=== PATIENT | male | born 1950 | race Caucasian/White ===

== ENCOUNTER 2017-09-16 08:43 | Day surgery (SDC) | payer BC ==
[~2017-09-16 08:43] MED LIST: Cidofovir(NF) 75 MG/ML 5 ML VIAL TOPICAL ONE; Famotidine IV* 10 MG/ML 2 ML (20 mg) IV ONE
[2017-09-16] MEDS ORDERED: Methylene Blue 0.5 %* 50 MG/10 ML AMP IV ONE (09:13)
[2017-09-16] MEDS ORDERED: Famotidine IV* 10 MG/ML 2 ML (20 mg) ONE (09:26)
[2017-09-16] MEDS ORDERED: KETAMINE HCL* 50 MG/ML 10 ML VIAL ONE (10:29)
[2017-09-16] MEDS ORDERED: Midazolam* 1 MG/ML 10 ML VIAL (10 MG) ONE (10:29)
[2017-09-16] MEDS ORDERED: Propofol* 10 MG/ML 20 ML BTL IV PUSH ONE (10:29)
[2017-09-16] MEDS ORDERED: Lidocaine 2% PF * 5 ML VIAL ONE (10:29)
[2017-09-16] MEDS ORDERED: Ondansetron INJ* 2 MG/ML VIAL ONE (10:29)
[2017-09-16] MEDS ORDERED: Mivacurium Chloride* 20 MG/10 ML VIAL IV ONE (10:29)
[2017-09-16] MEDS ORDERED: Dexamethasone IV* 4 MG/ML 1 ML (4 MG) ONE (10:29)
[2017-09-16] MEDS ORDERED: fentaNYL* 50 MCG/ML 2 ML VIAL (100 MCG VIAL) ONE ×3 (10:29→13:30)
[2017-09-16] MEDS ORDERED: Lidocaine 4% TOPICAL* 50 ML TOP.SOLN ONE (10:35)
[2017-09-16] MEDS ORDERED: EPINEPHRINE 1 MG/ML 1 ML VIAL ONE (10:35)
[2017-09-16] MEDS ORDERED: Oxymetazoline 0.05% NASAL SPR* 15 ML BTL ONE (10:35)
[2017-09-16] MEDS ORDERED: Phenylephrine IV* 40 MCG/ML 10 ML SYRINGE ONE ×2 (11:08→11:54)
[2017-09-16] MEDS ORDERED: Levalbuterol 0.63MG/3ML NEB* UNIT OF USE INH PRN (11:42)
[2017-09-16] MEDS ORDERED: HYDROmorphone INJ* 1 MG/ML CARPUJECT SYRINGE IV PRN (11:42)
[2017-09-16] MEDS ORDERED: Ondansetron INJ* 2 MG/ML VIAL IV PRN (11:42)
[2017-09-16] MEDS: fentaNYL* 50 MCG/ML 2 ML VIAL (100 MCG VIAL) IV PRN ×2 (13:31→13:56)
[2017-09-16] MEDS ORDERED: Ibuprofen TAB* 400 MG ONE (14:28)
[2017-09-16 14:32] VITALS: BP 141/80
--- NOTE | 2017-09-17 04:10 | OP ---
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 OPERATIVE PROCEDURE: Microlaryngoscopy with KTP laser ablation of laryngeal papilloma under general endotracheal anesthesia with a laryngeal laser safe tube. COMPLICATIONS: None. DISPOSITION: Good. SPECIMEN: Laryngeal papilloma. INDICATIONS: The patient has a long history of laryngeal papillomatosis. He has had over 50 surgeries elsewhere for this. He has papilloma covering his supraglottis bilaterally over his vocal cords primarily though in the anterior two-thirds aspect of his larynx. DESCRIPTION OF PROCEDURE: He was taken to the operating room and placed in the supine position on the operating room table. General anesthesia was induced and he was orotracheally intubated with a #6 laser safe endotracheal tube. He was turned and draped for the surgery. Oxygen was turned down low for the procedure and his face was wrapped with wet towels. The laryngoscope was inserted and I systematically used the KTP laser at a setting between 6 and 10 to ablate the papilloma that was spreading over his supraglottis down the petiole of the epiglottis over his false vocal cords into the ventricle and then down over his true vocal cords. Once this was all done, I used the cidofovir, injected it into the areas of surgical resection. I used 2 mL of 75 mg per mL cidofovir. The laryngoscope I used was the smaller of the JAKO-II laryngoscopes. The patient tolerated the procedure well, no complications, extubated uneventfully, and transferred to the recover room in stable condition. [id number]/[facility] #: [id number] [facility]
== END 2017-09-16 14:51 | disposition home or self-care (01) ==
LOC: OR 08:43
PROVIDERS: ATTEND Otolaryngology
DX: D10.5 Benign neoplasm of other parts of oropharynx (principal); G47.33 Obstructive sleep apnea (adult) (pediatric); F41.8 Other specified anxiety disorders; Z85.46 Personal history of malignant neoplasm of prostate
CPT/HCPCS: 88305; A9270-GY; J0740; J1100; J2250; J2405; J2704; J3010

== ENCOUNTER 2018-09-08 07:57 | Day surgery (SDC) | payer BC ==
[~2018-09-08 07:57] MED LIST changes: +Buffered Lidocaine 0.9% SYRIN* 5 ML/SYR SYRINGE INTRADERM ONE; -Cidofovir(NF) 75 MG/ML 5 ML VIAL TOPICAL ONE; +Dexamethasone TAB* 4 MG PO ONE; +DiMENhydriNATE IV* 50 MG/ML VIAL IV PUSH PRN; +Levalbuterol 0.63MG/3ML NEB* UNIT OF USE INH PRN; +Morphine VIAL* 4 MG/ML VIAL (1 ml vial) IV PRN; +Naloxone* 0.4 MG/ML 1 ML VIAL IV PRN; +Ondansetron TAB* 4 MG PO ONE; +PROCHLORPERAZINE INJ 5 MG/ML 2 ML VIAL IV PRN; +[UNRECOGNIZED DRUG - OTHER] IVPB ONE; +fentaNYL* 50 MCG/ML 2 ML VIAL (100 MCG VIAL) IV PRN
[2018-09-08] MEDS ORDERED: Famotidine IV* 10 MG/ML 2 ML (20 mg) ONE (08:47)
[2018-09-08] MEDS ORDERED: Ondansetron ODT TAB* 4 MG ONE (08:48)
[2018-09-08] MEDS ORDERED: Dexamethasone TAB* 4 MG ONE (08:48)
[2018-09-08] MEDS ORDERED: Midazolam* 1 MG/ML 2 ML VIAL (2 MG) ONE (09:38)
[2018-09-08] MEDS ORDERED: fentaNYL* 50 MCG/ML 2 ML VIAL (100 MCG VIAL) ONE (09:38)
[2018-09-08] MEDS ORDERED: KETAMINE HCL* 50 MG/ML 10 ML VIAL ONE (09:38)
[2018-09-08] MEDS ORDERED: Atracurium* 10 MG/ML 10 ML VIAL ONE (09:38)
[2018-09-08] MEDS ORDERED: Neostigmine Methylsulfate* 1 MG/ML 10 ML VIAL (1 mg/ml) ONE (09:50)
[2018-09-08] MEDS ORDERED: Glycopyrrolate IV* 0.2 MG/ML 1 ML VIAL ONE ×2 (09:50→11:06)
[2018-09-08] MEDS ORDERED: EPINEPHRINE 1 MG/ML 1 ML VIAL ONE (10:23)
[2018-09-08] MEDS ORDERED: Lidocaine 4% TOPICAL* 50 ML TOP.SOLN ONE (10:23)
[2018-09-08] MEDS ORDERED: Oxymetazoline 0.05% NASAL SPR* 15 ML BTL ONE (10:23)
[2018-09-08] MEDS ORDERED: Methylene Blue 0.5 %* 50 MG/10 ML AMP IV ONE (10:28)
[2018-09-08] MEDS ORDERED: Propofol* 10 MG/ML 20 ML BTL ONE (11:06)
[2018-09-08 12:54] VITALS: BP 137/69
--- NOTE | 2018-09-09 00:20 | OP ---
DATE OF OPERATION: 09/08/18 - [facility] DATE OF : 48 SURGEON: Ugo Hernandez MD ANESTHESIA: General endotracheal anesthesia. PRE-OP DIAGNOSIS: laryngeal respiratory papillomatosis. POST-OP DIAGNOSIS: re laryngeal respiratory papillomatosis. OPERATIVE PROCEDURE: Microlaryngoscopy with biopsy and KTP laser ablation of laryngeal papillomatosis under general endotracheal anesthesia with a laser- safe endotracheal tube. COMPLICATIONS: None. DISPOSITION: Good. SPECIMEN: None. BLOOD LOSS: None. DESCRIPTION OF PROCEDURE: The patient was taken to the operating room and placed in the supine position on the operating table, maintained with general anesthesia and he was orotracheally intubated with a laser-safe tube, turned and draped for the surgery. During the surgery, he was wrapped with wet drapes and the oxygen was turned down because of the laser safety. A tooth guard was placed in his upper teeth and laryngoscope was inserted and suspended from the suspension system. He has diffuse papillomatosis of his supraglottis, glottis extending into the subglottic. By his count, this is about his 50th operation. KTP laser 8 power setting continuous was used to ablate the polyps changing position of the laryngoscope as needed. Then in the different surgical areas, I injected cidofovir intralesionally. The patient tolerated this well, no complications and transferred to the recovery room in stable condition. [id number]/[facility] #: [id number] [facility]
== END 2018-09-08 12:56 | disposition home or self-care (01) ==
LOC: OR 07:57
PROVIDERS: ATTEND Otolaryngology
DX: D14.1 Benign neoplasm of larynx (principal); E78.5 Hyperlipidemia, unspecified; F32.9 Major depressive disorder, single episode, unspecified
CPT/HCPCS: A9270-GY; J0740; J2250; J2704; J2710; J3010; J8540

== ENCOUNTER 2019-03-06 07:29 | Day surgery (SDC) | payer BC ==
[~2019-03-06 07:29] MED LIST changes: +Acetaminophen TAB* 325 MG PO PRN; -Buffered Lidocaine 0.9% SYRIN* 5 ML/SYR SYRINGE INTRADERM ONE; +Buffered Lidocaine 1% SYRIN* 1 ML/SYRINGE INTRADERM ONE; -Dexamethasone TAB* 4 MG PO ONE; -DiMENhydriNATE IV* 50 MG/ML VIAL IV PUSH PRN; -Famotidine IV* 10 MG/ML 2 ML (20 mg) IV ONE; -Levalbuterol 0.63MG/3ML NEB* UNIT OF USE INH PRN; -Morphine VIAL* 4 MG/ML VIAL (1 ml vial) IV PRN; -Naloxone* 0.4 MG/ML 1 ML VIAL IV PRN; -Ondansetron TAB* 4 MG PO ONE; -PROCHLORPERAZINE INJ 5 MG/ML 2 ML VIAL IV PRN; -[UNRECOGNIZED DRUG - OTHER] IVPB ONE; -fentaNYL* 50 MCG/ML 2 ML VIAL (100 MCG VIAL) IV PRN
[2019-03-06] MEDS ORDERED: fentaNYL* 50 MCG/ML 2 ML VIAL (100 MCG VIAL) ONE (07:53)
[2019-03-06] MEDS ORDERED: Midazolam* 1 MG/ML 5 ML VIAL (5 MG) ONE (07:53)
[2019-03-06] MEDS ORDERED: Lidocain 1% EPI 1:100,000 * 30 ML MDV ONE (08:51)
[2019-03-06] MEDS ORDERED: Bacitracin OPHTH.OINT* 3.5 GM ONE (08:51)
[2019-03-06] MEDS ORDERED: BSS OPTH.SOL* BTL ONE (08:51)
[2019-03-06] MEDS ORDERED: Tetracaine 0.5% OPTH.SOL 4 ML* 1 DROP BTL ONE (08:52)
[2019-03-06] MEDS ORDERED: Povidone Iodine 5% OPTH* 30 ML BTL ONE (08:52)
[2019-03-06] MEDS ORDERED: Propofol* 10 MG/ML 20 ML BTL ONE (09:22)
[2019-03-06] MEDS ORDERED: Midazolam* 1 MG/ML 2 ML VIAL (2 MG) ONE (09:33)
[2019-03-06 10:47] VITALS: BP 115/78
--- NOTE | 2019-03-06 11:46 | OP ---
DATE OF OPERATION: 03/06/19 - [facility] DATE OF : 48 SURGEON: Red Jensen MD. MARKETING TECHNOLOGY SPECIALIST: None. PRE-OP DIAGNOSIS: Bilateral lower lid blepharochalasis. POST-OP DIAGNOSIS: Bilateral lower lid blepharochalasis. OPERATIVE PROCEDURE: Bilateral lower lid blepharoplasty. BLOOD LOSS: Less than 5 cc. COMPLICATIONS: None. DESCRIPTION OF PROCEDURE: The patient was seen preoperatively in the holding area, where a subciliary incision was marked in each eye. He was subsequently brought to the operating suite, where he was given intravenous sedation. A subciliary injection of lidocaine 1% with epinephrine was performed as well as a block over the infraorbital foramen on both sides. A drop of tetracaine was placed in each eye. The patient was prepped and draped in the usual sterile fashion for ophthalmic surgery and attention was directed to the right eye. A # 15 Dinos Rule David blade was used to incise the subciliary incision. The skin was dissected both bluntly and sharply from the underlying orbicularis for approximately 1.5 cm. The orbicularis muscle was incised in a horizontal fashion approximately 5 mm inferior to the tarsal plate. Blunt dissection revealed a vascular plane superficial to the septum. A Kristine scissors was used to horizontally incise over the septum and expose sequentially the medial and lateral fat pads. Gentle pressure on the globe produced significant herniation of fat. This was in turn clamped, cut, and cauterized through all of these fat pads. Gentle cauterization of the orbicularis was performed as necessary. Overriding the orbicularis temporally was excised and cauterized. The patient was asked to look up and open his mouth and the skin of the lower lid was draped over the wound. A bart was made indicating redundant skin. A strip of skin was excised with Kristine scissor. Once hemostasis was confirmed , the skin was then closed with a running 6-0 nylon suture. Attention was then directed to the contralateral eye, where the same procedure was performed. At the end of the case, the tissue that was removed from each eye appeared symmetric. The eyelids appeared symmetric. The patient did not have any significant traction on the lower lids and had no active bleeding. Topical bacitracin was placed on the wound. The patient was brought to the recovery room, where he was placed in the head upright position and ice was placed on his eye. Postoperative instructions and followup appointment were given. [id number]/[facility] #: [id number] [place]
== END 2019-03-06 11:05 | disposition home or self-care (01) ==
LOC: OREAST 07:29
PROVIDERS: ATTEND Ophthalmology
DX: H02.32 Blepharochalasis right lower eyelid (principal); H02.35 Blepharochalasis left lower eyelid; J45.909 Unspecified asthma, uncomplicated; E78.5 Hyperlipidemia, unspecified; Z85.46 Personal history of malignant neoplasm of prostate; G47.33 Obstructive sleep apnea (adult) (pediatric); F32.89 Other specified depressive episodes
CPT/HCPCS: A9270-GY; J2250; J2704; J3010

== ENCOUNTER 2020-12-31 06:11 | Inpatient (IN) ==
[~2020-12-31 06:11] MED LIST changes: -Acetaminophen TAB* 325 MG PO PRN; +Buffered Lidocaine 1% SYRIN 1 ml INTRADERM ONE; -Buffered Lidocaine 1% SYRIN* 1 ML/SYRINGE INTRADERM ONE; +Lactated Ringers 1000 ml BAG 1,000 ML IV SCH
[2020-12-31] MEDS ORDERED: ceFAZolin 2 GM PREMIX 2 GM/50 ML BAG ONE (06:34)
[2020-12-31] MEDS ORDERED: Lidocaine 1% w EPI 1:200,000 SDV 30 ML VIAL ONE (06:48)
[2020-12-31] MEDS ORDERED: Gelfoam Sponge SIZE 100 SPONGE ONE (06:49)
[2020-12-31] MEDS ORDERED: Bupivacaine 0.25% SDV 30 ML ONE (06:49)
[2020-12-31] MEDS ORDERED: Bacitracin OINTMENT TUBE ONE (06:49)
[2020-12-31] MEDS ORDERED: Bacitracin INJECTION 50,000 UNITS ONE ×2 (06:49→12:53)
[2020-12-31] MEDS ORDERED: Thrombin 5,000 UNITS 1 APPLIC KIT - topical use - TOPICAL ONE (06:49)
[2020-12-31] MEDS ORDERED: fentaNYL 250 mcg/5 ml 50 MCG/ML 5 ml VIAL (250 MCG) ONE (07:02)
[2020-12-31] MEDS ORDERED: Propofol 10 MG/ML 20 ML BTL ONE ×2 (07:03→10:00)
[2020-12-31] MEDS ORDERED: Succinylcholine 200 mg VIAL 20 mg/ml 10 ml VIAL (200 mg) ONE (07:03)
[2020-12-31] MEDS ORDERED: Lidocaine 2% PF 5 ML VIAL ONE ×2 (07:03→07:45)
[2020-12-31] MEDS ORDERED: Artificial Tear OPHTH.OINT 3.5 GM ONE (07:05)
[2020-12-31] MEDS ORDERED: Rocuronium 50 mg VIAL 10 mg/ml 5 ml VIAL (50 mg) ONE (07:33)
[2020-12-31] MEDS ORDERED: Remifentanil 2 MG VIAL ONE (07:34)
[2020-12-31] MEDS ORDERED: levETIRAcetam IV 500 MG/5 ML VIAL ONE (08:02)
[2020-12-31] MEDS ORDERED: Mannitol 25% (12.5 GM) 50 ML 12.5 GM/50 ML VIAL ONE (08:02)
[2020-12-31] MEDS ORDERED: EPHEDrine (Pressors) 50 MG/ML VIAL ONE ×2 (08:31→12:24)
[2020-12-31] MEDS ORDERED: Dexamethasone IV 4 MG/ML VIAL 1 ml VIAL ONE (08:54)
[2020-12-31] MEDS ORDERED: HYDROmorphone 1 MG/1 ML SYRINGE ONE ×2 (09:39→14:42)
[2020-12-31] MEDS ORDERED: Phenylephrine 40 mcg/mL 10mL (400mcg) SYRINGE ONE (09:44)
[2020-12-31] MEDS ORDERED: Propofol 1,500 MG/150 ML BTL ONE (10:06)
[2020-12-31] MEDS ORDERED: diPHENhydraMINE IV 50 MG/ML 1 ml VIAL (BENADRYL) IV PRN (10:47)
[2020-12-31] MEDS ORDERED: HYDROmorphone 1 MG/1 ML SYRINGE IV PRN (10:47)
[2020-12-31] MEDS ORDERED: Naloxone 0.4 mg VIAL 0.4 mg/ml 1 ml VIAL IV PRN (10:47)
[2020-12-31] MEDS ORDERED: Prochlorperazine 5 mg/ml 2 ml VIAL (10 mg) IV PRN (10:47)
[2020-12-31] MEDS ORDERED: Ondansetron 4 mg VIAL 2 MG/ML 2 ml VIAL ONE (11:54)
[2020-12-31] MEDS: NS 0.9% 1000 ml BAG 1,000 ML IV SCH (15:15)
[2020-12-31 17:55] LABS: ABS Lymphocytes 0.4 10^3/ul (1.0-4.8); ABS Monocytes 0.2 10^3/ul (0-0.8); ABS Neutrophils 10.6 10^3/ul (1.5-7.7); Hematocrit 36 % (42-52); Hemoglobin 12.2 g/dL (14.0-18.0); Lymphocyte % 3.2 %; Mean Corpuscular HGB Conc 34 g/dL (31-36); Mean Corpuscular Hemoglobin 32 pg (27-31); Mean Corpuscular Volume 93 fL (80-94); Mean Platelet Volume 6.2 fL (7.4-10.4); Platelet Count 265 10^3/uL (150-450); Red Blood Count 3.85 10^6 /uL (4.18-5.48); Red Cell Distribution Width 14 % (10-15); White Blood Count 11.2 10^3/uL (3.5-10.8)
[2020-12-31] MEDS: hydrALAZINE 20 mg/ml 1 ML Vial IV IV SLOW PU PRN (17:56)
[2020-12-31] MEDS: ceFAZolin 2 GM PREMIX 2 GM/50 ML BAG IVPB SCH (18:02)
[2020-12-31] MEDS: Dexamethasone IV 4 MG/ML VIAL 1 ml VIAL IV SLOW PU SCH (18:08)
[2020-12-31 18:09] LABS: Activated Partial Thrombo Time 28.2 seconds (26.0-38.0); Albumin 3.9 g/dL (3.2-5.2); Albumin/Globulin Ratio 1.4 (1-3); BUN/Creatinine Ratio 12.7 (8-20); EGFR African American 87.1 (>60); Globulin 2.8 g/dL (2-4); INR 1.06 (0.82-1.09); Magnesium 1.8 mg/dL (1.9-2.7); Phosphorus 1.7 mg/dL (2.5-5.0); Total Bilirubin 0.3 mg/dL (0.2-1.0); Total Protein 6.7 g/dL (6.4-8.9)
[2020-12-31] MEDS: Morphine 2 MG/ML SYRINGE IV PRN (18:30)
[2020-12-31] MEDS ORDERED: niCARdipine 0.1MG/ML IVPREMIX 20 MG/200 ML BAG IV SCH (19:00)
[2020-12-31] MEDS: Ondansetron 4 mg VIAL 2 MG/ML 2 ml VIAL IV PRN (19:43)
[2020-12-31] MEDS: levETIRAcetam 500 MG IVPREMIX 500 MG/100 ML BAG IV SCH (20:22)
[2020-12-31] MEDS: Magnesium Hydroxide LIQ 30 ML UDC PO SCH (20:23)
[2020-12-31] MEDS ORDERED: Magnesium Hydroxide LIQ 30 ML UDC PO SCH (21:00)
[2020-12-31] MEDS: Acetaminophen IV 1000 MG/100ML IVPB SCH (21:51)
[2021-01-01] MEDS: Dexamethasone IV 4 MG/ML VIAL 1 ml VIAL IV SLOW PU SCH ×4 (00:12→17:39)
[2021-01-01] MEDS: ceFAZolin 2 GM PREMIX 2 GM/50 ML BAG IVPB SCH ×3 (00:13→17:18)
[2021-01-01] MEDS: NS 0.9% 1000 ml BAG 1,000 ML IV SCH ×2 (02:22→14:48)
[2021-01-01 04:37] LABS: ABS Lymphocytes 0.4 10^3/ul (1.0-4.8); ABS Monocytes 0.5 10^3/ul (0-0.8); ABS Neutrophils 12.6 10^3/ul (1.5-7.7); Hematocrit 34 % (42-52); Hemoglobin 11.5 g/dL (14.0-18.0); Lymphocyte % 2.9 %; Mean Corpuscular HGB Conc 34 g/dL (31-36); Mean Corpuscular Hemoglobin 32 pg (27-31); Mean Corpuscular Volume 94 fL (80-94); Platelet Count 265 10^3/uL (150-450); Red Blood Count 3.64 10^6 /uL (4.18-5.48); Red Cell Distribution Width 14 % (10-15); White Blood Count 13.5 10^3/uL (3.5-10.8)
[2021-01-01 04:55] LABS: Calcium 8.4 mg/dL (8.6-10.3); Magnesium 1.6 mg/dL (1.9-2.7); Phosphorus 2.5 mg/dL (2.5-5.0); Potassium 3.9 mmol/L (3.5-5.0)
[2021-01-01] MEDS: Acetaminophen IV 1000 MG/100ML IVPB SCH ×2 (05:29→14:47)
[2021-01-01] MEDS ORDERED: Magnesium Sulfate 2 gm BAG 2 GM/50 ML BAG IVPB ONE (06:54)
[2021-01-01] MEDS ORDERED: niCARdipine 0.1MG/ML IVPREMIX 20 MG/200 ML BAG IV SCH (08:26)
[2021-01-01] MEDS ORDERED: Calcium Gluconate 2 GM in NS 0.9% 100 ml BAG 100 ML IV ONE (08:30)
[2021-01-01] MEDS: Multivitamins/Minerals TAB PO SCH (09:01)
[2021-01-01] MEDS: Magnesium Hydroxide LIQ 30 ML UDC PO SCH ×2 (09:01→20:04)
[2021-01-01] MEDS: Polyethylene Glycol 3350 17 GM PACKET PO SCH (09:01)
[2021-01-01] MEDS: Enoxaparin 40 MG/0.4 ML SYR SUBCUT SCH (09:01)
[2021-01-01] MEDS: Morphine 2 MG/ML SYRINGE IV PRN ×3 (09:02→20:04)
[2021-01-01] MEDS: levETIRAcetam 500 MG IVPREMIX 500 MG/100 ML BAG IV SCH (09:29)
[2021-01-01 09:33] LABS: EGFR African American 92.3 (>60); EGFR Non-African American 76.3 (>60)
[2021-01-01] MEDS ORDERED: Magnesium Sulf 4 GM/100 ML IV 4,000 MG/100 ML BAG IVPB ONE (10:00)
[2021-01-01] MEDS ORDERED: Perflutren Lipid Microsphere 3 ML VIAL ONE (10:04)
[2021-01-01] MEDS ORDERED: Gadoteridol (CONTRAST) 279.3 MG/ML 10 ML IV ONE (16:10)
[2021-01-02] MEDS: Morphine 2 MG/ML SYRINGE IV PRN ×3 (00:34→21:45)
[2021-01-02] MEDS: Dexamethasone IV 4 MG/ML VIAL 1 ml VIAL IV SLOW PU SCH (00:34)
[2021-01-02] MEDS: ceFAZolin 2 GM PREMIX 2 GM/50 ML BAG IVPB SCH ×3 (00:36→17:25)
[2021-01-02 05:38] LABS: ABS Lymphocytes 0.5 10^3/ul (1.0-4.8); ABS Monocytes 0.9 10^3/ul (0-0.8); ABS Neutrophils 15.4 10^3/ul (1.5-7.7); Hematocrit 32 % (42-52); Hemoglobin 11.1 g/dL (14.0-18.0); Lymphocyte % 3.2 %; Mean Corpuscular HGB Conc 34 g/dL (31-36); Mean Corpuscular Hemoglobin 32 pg (27-31); Mean Corpuscular Volume 93 fL (80-94); Platelet Count 277 10^3/uL (150-450); Red Blood Count 3.48 10^6 /uL (4.18-5.48); Red Cell Distribution Width 14 % (10-15); White Blood Count 16.9 10^3/uL (3.5-10.8)
[2021-01-02 05:55] LABS: Calcium 8.4 mg/dL (8.6-10.3); EGFR African American 89.1 (>60); EGFR Non-African American 73.7 (>60); Magnesium 2.5 mg/dL (1.9-2.7); Potassium 4.2 mmol/L (3.5-5.0)
[2021-01-02] MEDS ORDERED: Dexamethasone IV 4 MG/ML VIAL 1 ml VIAL IV SLOW PU SCH ×2 (06:00→14:00)
[2021-01-02] MEDS: Magnesium Hydroxide LIQ 30 ML UDC PO SCH ×2 (08:18→20:57)
[2021-01-02] MEDS: Polyethylene Glycol 3350 17 GM PACKET PO SCH (08:19)
[2021-01-02] MEDS: Enoxaparin 40 MG/0.4 ML SYR SUBCUT SCH (08:19)
[2021-01-02] MEDS: Multivitamins/Minerals TAB PO SCH (08:19)
[2021-01-02] MEDS ORDERED: Calcium Gluconate 2 GM in NS 0.9% 100 ml BAG 100 ML IV ONE (08:30)
[2021-01-02] MEDS ORDERED: Sodium Phosphate IV 30 MMOLE in NS 0.9% 250 ml 250 ML IVPB ONE (08:30)
[2021-01-02 09:02] LABS: Urine Appearance Clear; Urine Bilirubin Negative (Negative); Urine Blood 1+ (Negative); Urine Color Straw; Urine Glucose Negative (Negative); Urine Ketones Negative (Negative); Urine Nitrite Negative (Negative); Urine Protein Negative (Negative); Urine Specific Gravity 1.012 (1.002-1.030); Urine Urobilinogen Negative (Negative)
[2021-01-02 09:04] LABS: Urine Bacteria Absent (Absent); Urine Red Blood Cell 2+(6-10/hpf) (Absent); Urine White Blood Cell Trace(0-5/hpf) (Absent)
[2021-01-02 13:55] LABS: Urine Potassium Concentration 18.6 mmol/L
[2021-01-02 18:11] LABS: Urine Appearance Clear; Urine Bilirubin Negative (Negative); Urine Blood 1+ (Negative); Urine Color Yellow; Urine Glucose Negative (Negative); Urine Ketones Negative (Negative); Urine Nitrite Negative (Negative); Urine Protein Negative (Negative); Urine Specific Gravity 1.012 (1.002-1.030); Urine Urobilinogen Negative (Negative)
[2021-01-02 18:14] LABS: Urine Bacteria Absent (Absent); Urine Red Blood Cell Trace(0-2/hpf) (Absent); Urine White Blood Cell Absent (Absent)
[2021-01-02] MEDS: Sodium Phosphate ADULT ENEMA 133 ML BTL PR SCH (19:30)
[2021-01-02] MEDS: Senna TAB 8.6 mg TAB PO SCH (20:57)
[2021-01-03] MEDS: Morphine 2 MG/ML SYRINGE IV PRN ×3 (02:19→23:12)
[2021-01-03] MEDS: ceFAZolin 2 GM PREMIX 2 GM/50 ML BAG IVPB SCH ×3 (02:31→16:48)
[2021-01-03 05:56] LABS: ABS Lymphocytes 2.1 10^3/ul (1.0-4.8); ABS Monocytes 1.4 10^3/ul (0-0.8); ABS Neutrophils 11.8 10^3/ul (1.5-7.7); Eosinophil % 0.2 %; Hematocrit 32 % (42-52); Hemoglobin 10.5 g/dL (14.0-18.0); Lymphocyte % 13.7 %; Mean Corpuscular HGB Conc 33 g/dL (31-36); Mean Corpuscular Hemoglobin 32 pg (27-31); Mean Corpuscular Volume 94 fL (80-94); Mean Platelet Volume 6.2 fL (7.4-10.4); Platelet Count 246 10^3/uL (150-450); Red Blood Count 3.34 10^6 /uL (4.18-5.48); Red Cell Distribution Width 14 % (10-15); White Blood Count 15.4 10^3/uL (3.5-10.8)
[2021-01-03 06:17] LABS: BUN/Creatinine Ratio 30.3 (8-20); Calcium 8.2 mg/dL (8.6-10.3); EGFR Non-African American 84.3 (>60); Magnesium 2.3 mg/dL (1.9-2.7); Phosphorus 3.4 mg/dL (2.5-5.0); Potassium 3.7 mmol/L (3.5-5.0)
[2021-01-03] MEDS ORDERED: Methylnaltrexone SQ (NF) 12 MG/0.6 ML VIAL SUBCUT ONE (09:22)
[2021-01-03] MEDS: Magnesium Hydroxide LIQ 30 ML UDC PO SCH ×5 (09:27→23:53)
[2021-01-03] MEDS: Senna TAB 8.6 mg TAB PO SCH ×2 (09:27→19:40)
[2021-01-03] MEDS: Sodium Phosphate ADULT ENEMA 133 ML BTL PR SCH (09:28)
[2021-01-03] MEDS: Enoxaparin 40 MG/0.4 ML SYR SUBCUT SCH (09:28)
[2021-01-03] MEDS: Multivitamins/Minerals TAB PO SCH (09:28)
[2021-01-03] MEDS: Polyethylene Glycol 3350 17 GM PACKET PO SCH (09:28)
[2021-01-03] MEDS: Calcium Gluconate 2 GM in NS 0.9% 100 ml BAG 100 ML IV SCH ×2 (11:30→23:20)
[2021-01-04] MEDS: ceFAZolin 2 GM PREMIX 2 GM/50 ML BAG IVPB SCH ×2 (01:20→09:41)
[2021-01-04] MEDS: NS 0.9% 1000 ml BAG 1,000 ML IV SCH (01:58)
[2021-01-04] MEDS: Ondansetron 4 mg VIAL 2 MG/ML 2 ml VIAL IV PRN ×2 (04:10→21:11)
[2021-01-04] MEDS: Magnesium Hydroxide LIQ 30 ML UDC PO SCH ×5 (04:11→20:26)
[2021-01-04 04:45] LABS: Urine Appearance Cloudy; Urine Bilirubin Negative (Negative); Urine Blood 1+ (Negative); Urine Color Yellow; Urine Glucose Negative (Negative); Urine Ketones Negative (Negative); Urine Nitrite Negative (Negative); Urine Protein Negative (Negative); Urine Specific Gravity 1.033 (1.002-1.030); Urine Urobilinogen Negative (Negative)
[2021-01-04 05:52] LABS: Urine Bacteria Absent (Absent); Urine Red Blood Cell 1+(3-5/hpf) (Absent); Urine Squamous Epithelial Cell Present (Absent); Urine White Blood Cell Trace(0-5/hpf) (Absent)
[2021-01-04] MEDS: Enoxaparin 40 MG/0.4 ML SYR SUBCUT SCH (09:41)
[2021-01-04] MEDS: Senna TAB 8.6 mg TAB PO SCH ×2 (09:42→20:25)
[2021-01-04] MEDS: Multivitamins/Minerals TAB PO SCH (09:42)
[2021-01-04] MEDS: Morphine 2 MG/ML SYRINGE IV PRN (09:51)
[2021-01-04] MEDS: Polyethylene Glycol 3350 17 GM PACKET PO SCH (10:05)
[2021-01-04] MEDS: Sodium Phosphate ADULT ENEMA 133 ML BTL PR SCH (10:06)
[2021-01-04] MEDS ORDERED: Sodium Phosphate ADULT ENEMA 133 ML BTL PR ONE (11:00)
[2021-01-04] MEDS ORDERED: NS 0.9% 500 ml BAG 500 ML IV ONE (16:41)
[2021-01-05] MEDS: Magnesium Hydroxide LIQ 30 ML UDC PO SCH ×7 (00:18→22:00)
[2021-01-05] MEDS: Ondansetron 4 mg VIAL 2 MG/ML 2 ml VIAL IV PRN (02:57)
[2021-01-05] MEDS: NS 0.9% 1000 ml BAG 1,000 ML IV SCH ×2 (04:22→17:13)
[2021-01-05] MEDS: Morphine 2 MG/ML SYRINGE IV PRN (04:23)
[2021-01-05] MEDS ORDERED: Sodium Phosphate ADULT ENEMA 133 ML BTL PR ONE (09:30)
[2021-01-05] MEDS: Senna TAB 8.6 mg TAB PO SCH ×2 (10:17→22:01)
[2021-01-05] MEDS: Metoclopramide 5 MG/ML VIAL (10 mg) IV SCH ×3 (10:18→23:11)
[2021-01-05] MEDS: Multivitamins/Minerals TAB PO SCH (10:18)
[2021-01-05] MEDS: Polyethylene Glycol 3350 17 GM PACKET PO SCH ×2 (10:18→10:30)
[2021-01-05] MEDS: Enoxaparin 40 MG/0.4 ML SYR SUBCUT SCH (10:18)
[2021-01-05] MEDS: Sodium Phosphate ADULT ENEMA 133 ML BTL PR SCH (11:07)
[2021-01-05 20:38] LABS: Potassium 3.4 mmol/L (3.5-5.0)
[2021-01-05] MEDS ORDERED: levETIRAcetam 500 MG IVPREMIX 500 MG/100 ML BAG IV ONE (21:30)
[2021-01-05] MEDS ORDERED: Morphine 2 MG/ML SYRINGE IV ONE (21:31)
[2021-01-06] MEDS: Magnesium Hydroxide LIQ 30 ML UDC PO SCH ×6 (00:09→21:26)
[2021-01-06] MEDS: Metoclopramide 5 MG/ML VIAL (10 mg) IV SCH ×4 (04:10→21:55)
[2021-01-06] MEDS ORDERED: Morphine 2 MG/ML SYRINGE IV ONE (04:31)
[2021-01-06 06:52] LABS: ABS Eosinophils 0.1 10^3/ul (0-0.6); ABS Lymphocytes 0.4 10^3/ul (1.0-4.8); ABS Monocytes 0.4 10^3/ul (0-0.8); ABS Neutrophils 4.5 10^3/ul (1.5-7.7); Eosinophil % 2.5 %; Hematocrit 34 % (42-52); Hemoglobin 11.1 g/dL (14.0-18.0); Lymphocyte % 6.6 %; Mean Corpuscular HGB Conc 33 g/dL (31-36); Mean Corpuscular Hemoglobin 32 pg (27-31); Mean Corpuscular Volume 96 fL (80-94); Mean Platelet Volume 6.1 fL (7.4-10.4); Platelet Count 266 10^3/uL (150-450); Red Cell Distribution Width 14 % (10-15); White Blood Count 5.5 10^3/uL (3.5-10.8)
[2021-01-06 07:33] LABS: Calcium 8.5 mg/dL (8.6-10.3); Potassium 3.7 mmol/L (3.5-5.0)
[2021-01-06 08:21] LABS: BUN/Creatinine Ratio 27.1 (8-20); EGFR African American 82.4 (>60); EGFR Non-African American 68.1 (>60)
[2021-01-06] MEDS: Polyethylene Glycol 3350 17 GM PACKET PO SCH (08:55)
[2021-01-06] MEDS: Senna TAB 8.6 mg TAB PO SCH ×2 (08:55→21:27)
[2021-01-06] MEDS: Enoxaparin 40 MG/0.4 ML SYR SUBCUT SCH (08:55)
[2021-01-06] MEDS: Multivitamins/Minerals TAB PO SCH (08:56)
[2021-01-06] MEDS ORDERED: KCL 20 MEQ/100 ML IVPREMIX 20 MEQ/100 ML BAG IV SCH (09:00)
[2021-01-06] MEDS ORDERED: LORazepam 2 mg VIAL 1 ml IV PUSH ONE (14:25)
[2021-01-06] MEDS ORDERED: Lorazepam PYXIS KEY PRN (14:25)
[2021-01-06] MEDS ORDERED: Lorazepam PYXIS KEY ONE (17:02)
[2021-01-06] MEDS ORDERED: LORazepam 2 mg VIAL 1 ml ONE (17:03)
[2021-01-06] MEDS: NS 0.9% 1000 ml BAG 1,000 ML IV SCH (19:32)
[2021-01-06] MEDS ORDERED: levETIRAcetam 500 MG IVPREMIX 500 MG/100 ML BAG IV ONE ×2 (21:38→21:39)
[2021-01-07] MEDS: Magnesium Hydroxide LIQ 30 ML UDC PO SCH ×6 (00:19→23:15)
[2021-01-07] MEDS ORDERED: LORazepam 2 mg VIAL 1 ml IV PUSH ONE (04:52)
[2021-01-07] MEDS ORDERED: Lorazepam PYXIS KEY PRN ×2 (04:52→18:13)
[2021-01-07 07:08] LABS: ABS Eosinophils 0.3 10^3/ul (0-0.6); ABS Lymphocytes 0.5 10^3/ul (1.0-4.8); ABS Monocytes 0.6 10^3/ul (0-0.8); ABS Neutrophils 4.7 10^3/ul (1.5-7.7); Hematocrit 29 % (42-52); Hemoglobin 9.8 g/dL (14.0-18.0); Lymphocyte % 8.1 %; Mean Corpuscular HGB Conc 34 g/dL (31-36); Mean Corpuscular Hemoglobin 32 pg (27-31); Mean Corpuscular Volume 95 fL (80-94); Platelet Count 284 10^3/uL (150-450); Red Blood Count 3.05 10^6 /uL (4.18-5.48); Red Cell Distribution Width 14 % (10-15)
[2021-01-07] MEDS: NS 0.9% 1000 ml BAG 1,000 ML IV SCH ×2 (07:48→18:29)
[2021-01-07 07:55] LABS: BUN/Creatinine Ratio 26.5 (8-20); Calcium 8.4 mg/dL (8.6-10.3); EGFR African American 91.2 (>60); EGFR Non-African American 75.4 (>60); Potassium 3.4 mmol/L (3.5-5.0)
[2021-01-07 09:14] LABS: Magnesium 2.9 mg/dL (1.9-2.7)
[2021-01-07] MEDS: Enoxaparin 40 MG/0.4 ML SYR SUBCUT SCH (09:20)
[2021-01-07] MEDS: Senna TAB 8.6 mg TAB PO SCH ×2 (09:20→23:15)
[2021-01-07] MEDS: Multivitamins/Minerals TAB PO SCH (09:20)
[2021-01-07] MEDS: Polyethylene Glycol 3350 17 GM PACKET PO SCH (09:21)
[2021-01-07] MEDS: KCL 20 MEQ/100 ML IVPREMIX 20 MEQ/100 ML BAG IV SCH ×2 (10:14→15:22)
[2021-01-07] MEDS: levETIRAcetam 500 MG IVPREMIX 500 MG/100 ML BAG IV SCH ×2 (10:38→21:59)
[2021-01-07] MEDS ORDERED: KCL 20 MEQ/100 ML IVPREMIX 20 MEQ/100 ML BAG IV SCH (11:00)
[2021-01-07] MEDS: Pantoprazole VIAL 40 MG VIAL IV SCH (11:26)
[2021-01-07] MEDS: Metoclopramide 5 MG/ML VIAL (10 mg) IV SCH ×2 (11:27→16:28)
[2021-01-07 16:06] LABS: Hepatitis B Surface Antigen Nonreactive (Nonreactive)
[2021-01-07 16:11] LABS: Hepatitis A Ab IgM Negative (Negative); Hepatitis B Core IgM Nonreactive (Nonreactive)
[2021-01-07 16:23] LABS: Hepatitis C Antibody Negative (Negative)
[2021-01-08] MEDS: Magnesium Hydroxide LIQ 30 ML UDC PO SCH ×7 (00:22→20:48)
[2021-01-08] MEDS: Metoclopramide 5 MG/ML VIAL (10 mg) IV SCH ×5 (00:32→22:05)
[2021-01-08] MEDS: LORazepam 2 mg VIAL 1 ml IV PUSH PRN ×2 (00:33→10:10)
[2021-01-08] MEDS: NS 0.9% 1000 ml BAG 1,000 ML IV SCH ×3 (04:25→21:01)
[2021-01-08 05:11] LABS: ABS Eosinophils 0.5 10^3/ul (0-0.6); ABS Lymphocytes 0.8 10^3/ul (1.0-4.8); ABS Monocytes 0.9 10^3/ul (0-0.8); ABS Neutrophils 6.6 10^3/ul (1.5-7.7); Eosinophil % 5.3 %; Hematocrit 28 % (42-52); Hemoglobin 9.3 g/dL (14.0-18.0); Lymphocyte % 9.5 %; Mean Corpuscular HGB Conc 33 g/dL (31-36); Mean Corpuscular Hemoglobin 32 pg (27-31); Mean Corpuscular Volume 96 fL (80-94); Mean Platelet Volume 5.9 fL (7.4-10.4); Platelet Count 258 10^3/uL (150-450); Red Blood Count 2.91 10^6 /uL (4.18-5.48); Red Cell Distribution Width 14 % (10-15); White Blood Count 8.8 10^3/uL (3.5-10.8)
[2021-01-08 05:30] LABS: Calcium 7.8 mg/dL (8.6-10.3); Potassium 3.8 mmol/L (3.5-5.0)
[2021-01-08 05:35] LABS: BUN/Creatinine Ratio 30.6 (8-20); EGFR African American 107.5 (>60); EGFR Non-African American 88.9 (>60)
[2021-01-08] MEDS ORDERED: Simethicone SUSP ORALSYR 66.66 MG/ML PO PRN (07:29)
[2021-01-08] MEDS: Senna TAB 8.6 mg TAB PO SCH ×2 (08:41→20:48)
[2021-01-08] MEDS: Docusate LIQ 100 MG/10 ML UDC G TUBE SCH ×3 (08:41→20:48)
[2021-01-08] MEDS: Polyethylene Glycol 3350 17 GM PACKET PO SCH ×2 (08:42→12:22)
[2021-01-08] MEDS: Pantoprazole VIAL 40 MG VIAL IV SCH (08:42)
[2021-01-08] MEDS: Multivitamins/Minerals TAB PO SCH (08:42)
[2021-01-08 10:08] LABS: Activated Partial Thrombo Time 26.5 seconds (26.0-38.0); INR 1.28 (0.82-1.09)
[2021-01-08] MEDS: levETIRAcetam 500 MG IVPREMIX 500 MG/100 ML BAG IV SCH ×2 (10:15→21:38)
[2021-01-08] MEDS ORDERED: Pancrelipase/Bicarb NG TUBE 1 PREP/5 ML SOL NG TUBE ONE (11:00)
[2021-01-08] MEDS: Simethicone SUSP ORALSYR 66.66 MG/ML PO SCH ×3 (12:21→18:00)
[2021-01-08] MEDS ORDERED: Enoxaparin 40 MG/0.4 ML SYR SUBCUT ONE (15:07)
[2021-01-08 20:19] LABS: HIV 4th Generation Nonreactive (Nonreactive)
[2021-01-09] MEDS: LORazepam 2 mg VIAL 1 ml IV PUSH PRN ×5 (00:39→22:20)
[2021-01-09] MEDS: Magnesium Hydroxide LIQ 30 ML UDC PO SCH ×5 (00:56→15:27)
[2021-01-09] MEDS: Ondansetron 4 mg VIAL 2 MG/ML 2 ml VIAL IV PRN ×2 (01:57→08:23)
[2021-01-09] MEDS: Metoclopramide 5 MG/ML VIAL (10 mg) IV SCH (04:55)
[2021-01-09] MEDS ORDERED: Ondansetron 4 mg VIAL 2 MG/ML 2 ml VIAL IV ONE (05:00)
[2021-01-09 05:42] LABS: ABS Eosinophils 0.3 10^3/ul (0-0.6); ABS Lymphocytes 0.7 10^3/ul (1.0-4.8); ABS Monocytes 1.1 10^3/ul (0-0.8); ABS Neutrophils 10.4 10^3/ul (1.5-7.7); Eosinophil % 2.2 %; Hematocrit 28 % (42-52); Hemoglobin 9.5 g/dL (14.0-18.0); Lymphocyte % 5.8 %; Mean Corpuscular HGB Conc 34 g/dL (31-36); Mean Corpuscular Hemoglobin 32 pg (27-31); Mean Corpuscular Volume 96 fL (80-94); Platelet Count 300 10^3/uL (150-450); Red Blood Count 2.94 10^6 /uL (4.18-5.48); Red Cell Distribution Width 14 % (10-15); White Blood Count 12.5 10^3/uL (3.5-10.8)
[2021-01-09 05:57] LABS: BUN/Creatinine Ratio 20.9 (8-20); Calcium 8.3 mg/dL (8.6-10.3); EGFR African American 99.4 (>60); EGFR Non-African American 82.1 (>60); Potassium 3.7 mmol/L (3.5-5.0)
[2021-01-09] MEDS: Pantoprazole VIAL 40 MG VIAL IV SCH (08:22)
[2021-01-09] MEDS: Docusate LIQ 100 MG/10 ML UDC G TUBE SCH (08:28)
[2021-01-09] MEDS: Simethicone SUSP ORALSYR 66.66 MG/ML PO SCH ×3 (08:29→15:27)
[2021-01-09] MEDS: Multivitamins/Minerals TAB PO SCH (08:29)
[2021-01-09] MEDS: Polyethylene Glycol 3350 17 GM PACKET PO SCH (08:29)
[2021-01-09] MEDS: Senna TAB 8.6 mg TAB PO SCH (08:29)
[2021-01-09] MEDS: levETIRAcetam 500 MG IVPREMIX 500 MG/100 ML BAG IV SCH ×2 (11:22→22:20)
[2021-01-09] MEDS: Enoxaparin 40 MG/0.4 ML SYR SUBCUT SCH (11:22)
[2021-01-09 11:25] LABS: Albumin 3.2 g/dL (3.2-5.2); Albumin/Globulin Ratio 1.1 (1-3); Globulin 2.8 g/dL (2-4); Indirect Bilirubin 0.2 mg/dL (0.3-1.0); Total Bilirubin 0.3 mg/dL (0.2-1.0)
[2021-01-09] MEDS: NS 0.9% 1000 ml BAG 1,000 ML IV SCH (11:31)
[2021-01-09] MEDS ORDERED: Lactated Ringers 1000 ml BAG 1,000 ML IV ONE (14:16)
[2021-01-09 15:17] LABS: Urine Appearance Clear; Urine Bilirubin Negative (Negative); Urine Blood 2+ (Negative); Urine Color Yellow; Urine Glucose Negative (Negative); Urine Ketones Negative (Negative); Urine Nitrite Negative (Negative); Urine Protein 2+(100 mg/dL) (Negative); Urine Specific Gravity 1.026 (1.002-1.030); Urine Urobilinogen Negative (Negative)
[2021-01-09 15:53] LABS: Urine Bacteria Absent (Absent); Urine Red Blood Cell 3+(>10/hpf) (Absent); Urine Squamous Epithelial Cell Present (Absent); Urine White Blood Cell Trace(0-5/hpf) (Absent)
[2021-01-09] MEDS: hydrALAZINE 20 mg/ml 1 ML Vial IV IV SLOW PU PRN (16:59)
[2021-01-09] MEDS: Albuterol 2.5mg/3 ml (0.083%) NEB.SOLN INH PRN (22:59)
[2021-01-10] MEDS: hydrALAZINE 20 mg/ml 1 ML Vial IV IV SLOW PU PRN (01:47)
[2021-01-10] MEDS ORDERED: Metoprolol Tartrate 5 mg VIAL 5 ml VIAL (1 mg/ml) IV ONE ×2 (02:12→02:23)
[2021-01-10] MEDS ORDERED: Metoprolol Tartrate 5 mg VIAL 5 ml VIAL (1 mg/ml) ONE (02:16)
[2021-01-10 02:43] LABS: ABS Eosinophils 0.1 10^3/ul (0-0.6); ABS Lymphocytes 0.9 10^3/ul (1.0-4.8); ABS Monocytes 1.1 10^3/ul (0-0.8); ABS Neutrophils 15.7 10^3/ul (1.5-7.7); Eosinophil % 0.6 %; Hematocrit 29 % (42-52); Hemoglobin 9.6 g/dL (14.0-18.0); Lymphocyte % 4.8 %; Mean Corpuscular HGB Conc 33 g/dL (31-36); Mean Corpuscular Hemoglobin 31 pg (27-31); Mean Corpuscular Volume 95 fL (80-94); Mean Platelet Volume 5.6 fL (7.4-10.4); Platelet Count 313 10^3/uL (150-450); Red Blood Count 3.07 10^6 /uL (4.18-5.48); Red Cell Distribution Width 14 % (10-15); White Blood Count 17.8 10^3/uL (3.5-10.8)
[2021-01-10 02:58] LABS: ALT 49 U/L (7-52); AST 52 U/L (13-39); Albumin 3.1 g/dL (3.2-5.2); Alkaline Phosphatase 68 U/L (34-104); Anion Gap 9 mmol/L (2-11); Blood Urea Nitrogen 16 mg/dL (6-24); CO2 Carbon Dioxide 29 mmol/L (22-32); Calcium 8.2 mg/dL (8.6-10.3); Chloride 100 mmol/L (101-111); EGFR Non-African American 84.3 (>60); Globulin 3.1 g/dL (2-4); Glucose 113 mg/dL (70-100); Potassium 3.5 mmol/L (3.5-5.0); Sodium 138 mmol/L (135-145); Total Protein 6.2 g/dL (6.4-8.9)
[2021-01-10] MEDS ORDERED: Diltiazem IV push/loading dose 5 MG/ML 5 ML vial (25 mg) IV SLOW PU ONE (03:00)
[2021-01-10] MEDS ORDERED: Diltiazem (ADVAN VIAL) 100 MG/100 ML ADDV.BAG IV SCH (03:00)
[2021-01-10] MEDS: Morphine 2 MG/ML SYRINGE IV PRN ×2 (03:11→22:20)
[2021-01-10] MEDS: Ondansetron 4 mg VIAL 2 MG/ML 2 ml VIAL IV PRN ×2 (03:11→22:20)
[2021-01-10 03:30] LABS: C Reactive Protein 152.39 mg/L (<8.01)
[2021-01-10 03:48] LABS: TSH Ultra Thyroid Stim Horm 0.25 mcIU/mL (0.34-5.60)
[2021-01-10] MEDS ORDERED: Piperacillin/Tazobac ADVAN 3.375 GM in NS 0.9% 100 ml BAG 100 ML IV ONE (04:15)
[2021-01-10 04:44] LABS: T4, Total 10.04 mcg/dL (6.09-12.23)
[2021-01-10] MEDS ORDERED: Zosyn per Pharmacy NOTE FOLLOW UP SCH (05:00)
[2021-01-10 05:05] LABS: Free T4 1.37 ng/dL (0.61-1.12)
[2021-01-10 05:32] LABS: Troponin I 0.15 ng/mL (<0.03)
[2021-01-10] MEDS: LORazepam 2 mg VIAL 1 ml IV PUSH PRN ×2 (06:08→22:42)
[2021-01-10] MEDS ORDERED: Potassium Chlor 20 meq TAB.ER PO ONE (07:41)
[2021-01-10] MEDS ORDERED: Polyethylene Glycol 3350 17 GM PACKET PO PRN (07:50)
[2021-01-10 08:04] LABS: Magnesium 2.3 mg/dL (1.9-2.7); Phosphorus 2.6 mg/dL (2.5-5.0)
[2021-01-10] MEDS: Senna TAB 8.6 mg TAB PO PRN (08:08)
[2021-01-10] MEDS: Pantoprazole VIAL 40 MG VIAL IV SCH (08:15)
[2021-01-10] MEDS: ZOSYN 3.375 GM Q8H per EXTENDED INFUSION IV SCH ×2 (10:26→18:08)
[2021-01-10] MEDS: levETIRAcetam 500 MG IVPREMIX 500 MG/100 ML BAG IV SCH ×2 (10:40→22:09)
[2021-01-10] MEDS: Enoxaparin 40 MG/0.4 ML SYR SUBCUT SCH (10:47)
[2021-01-10 11:19] LABS: Troponin I 0.21 ng/mL (<0.03)
[2021-01-10 13:01] LABS: Urine Appearance Cloudy; Urine Bacteria Absent (Absent); Urine Bilirubin Negative (Negative); Urine Blood 2+ (Negative); Urine Color Yellow; Urine Glucose Negative (Negative); Urine Ketones 1+ (Negative); Urine Nitrite Negative (Negative); Urine Protein 2+(100 mg/dL) (Negative); Urine Red Blood Cell 3+(>10/hpf) (Absent); Urine Specific Gravity 1.028 (1.002-1.030); Urine Urobilinogen Negative (Negative); Urine White Blood Cell Trace(0-5/hpf) (Absent)
[2021-01-10] MEDS ORDERED: Lorazepam PYXIS KEY PRN (14:52)
[2021-01-11] MEDS: ZOSYN 3.375 GM Q8H per EXTENDED INFUSION IV SCH ×3 (01:49→18:09)
[2021-01-11] MEDS: Morphine 2 MG/ML SYRINGE IV PRN (04:47)
[2021-01-11 05:03] LABS: ABS Eosinophils 0.4 10^3/ul (0-0.6); ABS Lymphocytes 1.1 10^3/ul (1.0-4.8); ABS Neutrophils 11.2 10^3/ul (1.5-7.7); Eosinophil % 2.8 %; Hematocrit 26 % (42-52); Hemoglobin 8.6 g/dL (14.0-18.0); Lymphocyte % 8.3 %; Mean Corpuscular HGB Conc 33 g/dL (31-36); Mean Corpuscular Hemoglobin 31 pg (27-31); Mean Corpuscular Volume 95 fL (80-94); Mean Platelet Volume 5.9 fL (7.4-10.4); Platelet Count 284 10^3/uL (150-450); Red Blood Count 2.74 10^6 /uL (4.18-5.48); Red Cell Distribution Width 14 % (10-15); White Blood Count 13.7 10^3/uL (3.5-10.8)
[2021-01-11] MEDS: LORazepam 2 mg VIAL 1 ml IV PUSH PRN (05:16)
[2021-01-11 05:18] LABS: Anion Gap 6 mmol/L (2-11); Blood Urea Nitrogen 19 mg/dL (6-24); CO2 Carbon Dioxide 27 mmol/L (22-32); Chloride 105 mmol/L (101-111); EGFR African American 128.2 (>60); EGFR Non-African American 105.9 (>60); Glucose 82 mg/dL (70-100); Magnesium 2.1 mg/dL (1.9-2.7); Potassium 4.1 mmol/L (3.5-5.0); Sodium 138 mmol/L (135-145)
[2021-01-11] MEDS: Albuterol 2.5mg/3 ml (0.083%) NEB.SOLN INH PRN (05:23)
[2021-01-11 07:41] LABS: Troponin I 0.17 ng/mL (<0.03)
[2021-01-11] MEDS ORDERED: Calcium Gluconate 3 GM in NS 0.9% 250 ml 250 ML IV ONE (08:30)
[2021-01-11] MEDS: Pantoprazole VIAL 40 MG VIAL IV SCH (09:39)
[2021-01-11] MEDS: levETIRAcetam 500 MG IVPREMIX 500 MG/100 ML BAG IV SCH ×2 (09:39→21:22)
[2021-01-11] MEDS: Senna TAB 8.6 mg TAB PO PRN (09:40)
[2021-01-11] MEDS ORDERED: Furosemide 40 mg/4 ml IV VIAL IV SLOW PU ONE (09:40)
[2021-01-11] MEDS: Enoxaparin 40 MG/0.4 ML SYR SUBCUT SCH (10:16)
[2021-01-11] MEDS: Metoclopramide 5 MG/ML VIAL (10 mg) IV SCH ×3 (10:16→21:22)
[2021-01-11] MEDS: Acetaminophen IV 1 GM/100ML 100 ML IVPB SCH ×2 (14:03→22:41)
[2021-01-11] MEDS ORDERED: Diltiazem IV push/loading dose 5 MG/ML 5 ML vial (25 mg) IV SLOW PU ONE ×2 (17:10→23:44)
[2021-01-11] MEDS ORDERED: Diltiazem (ADVAN VIAL) 100 MG/100 ML ADDV.BAG IV SCH (18:00)
[2021-01-11 21:04] LABS: Anion Gap 12 mmol/L (2-11); CO2 Carbon Dioxide 22 mmol/L (22-32); Calcium 6.8 mg/dL (8.6-10.3); Chloride 106 mmol/L (101-111); Potassium 3.3 mmol/L (3.5-5.0); Sodium 140 mmol/L (135-145)
[2021-01-11 21:10] LABS: BUN/Creatinine Ratio 22.4 (8-20); Blood Urea Nitrogen 15 mg/dL (6-24); EGFR African American 141.5 (>60); EGFR Non-African American 116.9 (>60); Glucose 75 mg/dL (70-100)
[2021-01-11 21:21] LABS: Troponin I 0.49 ng/mL (<0.03)
[2021-01-11] MEDS ORDERED: Metoprolol Tartrate 5 mg VIAL 5 ml VIAL (1 mg/ml) ONE (23:41)
[2021-01-11] MEDS ORDERED: Metoprolol Tartrate 5 mg VIAL 5 ml VIAL (1 mg/ml) IV ONE (23:44)
[2021-01-12] MEDS ORDERED: Diltiazem (ADVAN VIAL) 100 MG/100 ML ADDV.BAG IV SCH ×2 (00:24→04:58)
[2021-01-12] MEDS ORDERED: Potassium Chlor 20 meq TAB.ER PO ONE ×2 (00:25→08:29)
[2021-01-12] MEDS ORDERED: Metoprolol Tartrate 5 mg VIAL 5 ml VIAL (1 mg/ml) IV PRN (00:25)
[2021-01-12 01:58] LABS: Troponin I 0.49 ng/mL (<0.03)
[2021-01-12] MEDS: ZOSYN 3.375 GM Q8H per EXTENDED INFUSION IV SCH (02:16)
[2021-01-12] MEDS ORDERED: Diltiazem IV push/loading dose 5 MG/ML 5 ML vial (25 mg) IV SLOW PU ONE (04:57)
[2021-01-12] MEDS: Metoclopramide 5 MG/ML VIAL (10 mg) IV SCH ×4 (04:58→22:02)
[2021-01-12] MEDS: Acetaminophen IV 1 GM/100ML 100 ML IVPB SCH ×3 (05:24→21:58)
[2021-01-12 06:04] LABS: ABS Eosinophils 0.4 10^3/ul (0-0.6); ABS Lymphocytes 1.6 10^3/ul (1.0-4.8); ABS Neutrophils 8.5 10^3/ul (1.5-7.7); Eosinophil % 3.5 %; Hematocrit 27 % (42-52); Hemoglobin 9.1 g/dL (14.0-18.0); Lymphocyte % 13.9 %; Mean Corpuscular HGB Conc 34 g/dL (31-36); Mean Corpuscular Hemoglobin 31 pg (27-31); Mean Corpuscular Volume 94 fL (80-94); Mean Platelet Volume 6.3 fL (7.4-10.4); Platelet Count 346 10^3/uL (150-450); Red Blood Count 2.92 10^6 /uL (4.18-5.48); Red Cell Distribution Width 14 % (10-15); White Blood Count 11.6 10^3/uL (3.5-10.8)
[2021-01-12 06:18] LABS: Anion Gap 11 mmol/L (2-11); BUN/Creatinine Ratio 23.4 (8-20); Blood Urea Nitrogen 18 mg/dL (6-24); CO2 Carbon Dioxide 28 mmol/L (22-32); Calcium 8.4 mg/dL (8.6-10.3); Chloride 98 mmol/L (101-111); EGFR African American 120.5 (>60); EGFR Non-African American 99.6 (>60); Glucose 84 mg/dL (70-100); Potassium 3.7 mmol/L (3.5-5.0); Sodium 137 mmol/L (135-145)
[2021-01-12 07:35] LABS: Magnesium 1.9 mg/dL (1.9-2.7); Phosphorus 2.6 mg/dL (2.5-5.0)
[2021-01-12 07:45] LABS: Troponin I 0.55 ng/mL (<0.03)
[2021-01-12] MEDS ORDERED: Magnesium Sulfate IV 1GM/100ML 1 GM/100 ML BAG IV ONE (08:31)
[2021-01-12] MEDS: Amiodarone 400 mg TAB PO SCH ×2 (10:18→20:12)
[2021-01-12] MEDS: Enoxaparin 40 MG/0.4 ML SYR SUBCUT SCH (10:20)
[2021-01-12] MEDS: Pantoprazole VIAL 40 MG VIAL IV SCH (10:20)
[2021-01-12] MEDS: levETIRAcetam 500 MG IVPREMIX 500 MG/100 ML BAG IV SCH ×2 (10:24→22:03)
[2021-01-12 15:24] LABS: BLYM Result Summary Negative; BLYM Tissue ID S21-3234-E
[2021-01-12] MEDS: hydrALAZINE 20 mg/ml 1 ML Vial IV IV SLOW PU PRN (15:32)
[2021-01-12] MEDS ORDERED: Morphine 2 MG/ML SYRINGE IV ONE (17:35)
[2021-01-13] MEDS: Morphine 2 MG/ML SYRINGE IV PRN ×2 (03:04→08:18)
[2021-01-13] MEDS: Metoclopramide 5 MG/ML VIAL (10 mg) IV SCH (03:05)
[2021-01-13] MEDS: Acetaminophen IV 1 GM/100ML 100 ML IVPB SCH ×3 (05:04→21:03)
[2021-01-13 05:38] LABS: ABS Eosinophils 0.3 10^3/ul (0-0.6); ABS Lymphocytes 1.2 10^3/ul (1.0-4.8); ABS Monocytes 0.8 10^3/ul (0-0.8); ABS Neutrophils 8.1 10^3/ul (1.5-7.7); Eosinophil % 3.3 %; Hematocrit 27 % (42-52); Hemoglobin 8.9 g/dL (14.0-18.0); Lymphocyte % 11.7 %; Mean Corpuscular HGB Conc 34 g/dL (31-36); Mean Corpuscular Hemoglobin 32 pg (27-31); Mean Corpuscular Volume 94 fL (80-94); Mean Platelet Volume 6.2 fL (7.4-10.4); Platelet Count 383 10^3/uL (150-450); Red Blood Count 2.83 10^6 /uL (4.18-5.48); Red Cell Distribution Width 14 % (10-15); White Blood Count 10.4 10^3/uL (3.5-10.8)
[2021-01-13 05:54] LABS: Anion Gap 9 mmol/L (2-11); Blood Urea Nitrogen 17 mg/dL (6-24); CO2 Carbon Dioxide 26 mmol/L (22-32); Calcium 8.1 mg/dL (8.6-10.3); Chloride 101 mmol/L (101-111); EGFR African American 139.1 (>60); Glucose 80 mg/dL (70-100); Potassium 3.6 mmol/L (3.5-5.0); Sodium 136 mmol/L (135-145)
[2021-01-13 05:57] LABS: Troponin I 0.26 ng/mL (<0.03)
[2021-01-13] MEDS ORDERED: Lactated Ringers 1000 ml BAG 500 ML IV SCH (08:00)
[2021-01-13] MEDS: KCL 20 MEQ/100 ML IVPREMIX 20 MEQ/100 ML BAG IV SCH ×2 (08:18→12:10)
[2021-01-13] MEDS ORDERED: Piperacillin/Tazobac ADVAN 3.375 GM in NS 0.9% 100 ml BAG 100 ML IV ONE (08:49)
[2021-01-13] MEDS ORDERED: Zosyn per Pharmacy NOTE FOLLOW UP SCH (09:00)
[2021-01-13] MEDS ORDERED: Linezolid 600 MG IVPREMIX(*) 600 MG/300 ML BAG IVPB SCH (09:00)
[2021-01-13] MEDS: Amiodarone 400 mg TAB PO SCH ×2 (09:11→21:03)
[2021-01-13] MEDS: Pantoprazole VIAL 40 MG VIAL IV SCH (09:12)
[2021-01-13 09:58] LABS: Magnesium 1.8 mg/dL (1.9-2.7); Phosphorus 3.1 mg/dL (2.5-5.0)
[2021-01-13] MEDS ORDERED: Lorazepam PYXIS KEY PRN ×2 (10:47→14:01)
[2021-01-13] MEDS ORDERED: LORazepam 2 mg VIAL 1 ml IV PUSH ONE (10:47)
[2021-01-13] MEDS ORDERED: Morphine 2 MG/ML SYRINGE ONE (10:56)
[2021-01-13] MEDS: Enoxaparin 40 MG/0.4 ML SYR SUBCUT SCH (11:48)
[2021-01-13] MEDS: levETIRAcetam 500 MG IVPREMIX 500 MG/100 ML BAG IV SCH ×2 (11:48→21:04)
[2021-01-13 12:32] LABS: Uric Acid 4.1 mg/dL (4.4-7.6)
[2021-01-13 12:42] LABS: LDH 243 U/L (140-271)
[2021-01-13] MEDS ORDERED: Lactated Ringers 1000 ml BAG 1,000 ML IV SCH (13:00)
[2021-01-13] MEDS ORDERED: Metoclopramide 5 MG/ML VIAL (10 mg) IV SLOW PU PRN (14:00)
[2021-01-13] MEDS ORDERED: Lorazepam PYXIS KEY ONE (14:02)
[2021-01-13] MEDS ORDERED: LORazepam 2 mg VIAL 1 ml ONE (14:02)
[2021-01-13] MEDS: ZOSYN 3.375 GM Q8H per EXTENDED INFUSION IV SCH ×2 (15:33→23:57)
[2021-01-13] MEDS: LORazepam 2 mg VIAL 1 ml IV PUSH PRN (19:37)
[2021-01-14] MEDS: LORazepam 2 mg VIAL 1 ml IV PUSH PRN ×3 (04:37→20:41)
[2021-01-14 04:56] LABS: ABS Eosinophils 0.3 10^3/ul (0-0.6); ABS Lymphocytes 0.9 10^3/ul (1.0-4.8); ABS Monocytes 0.6 10^3/ul (0-0.8); ABS Neutrophils 8.8 10^3/ul (1.5-7.7); Eosinophil % 2.6 %; Hematocrit 26 % (42-52); Lymphocyte % 8.7 %; Mean Corpuscular HGB Conc 35 g/dL (31-36); Mean Corpuscular Hemoglobin 33 pg (27-31); Mean Corpuscular Volume 94 fL (80-94); Mean Platelet Volume 6.2 fL (7.4-10.4); Platelet Count 373 10^3/uL (150-450); Red Blood Count 2.73 10^6 /uL (4.18-5.48); Red Cell Distribution Width 14 % (10-15); White Blood Count 10.6 10^3/uL (3.5-10.8)
[2021-01-14 05:16] LABS: BUN/Creatinine Ratio 19.4 (8-20); Calcium 8.2 mg/dL (8.6-10.3); EGFR African American 130.2 (>60); EGFR Non-African American 107.6 (>60); Magnesium 1.8 mg/dL (1.9-2.7); Potassium 4.1 mmol/L (3.5-5.0)
[2021-01-14] MEDS: ZOSYN 3.375 GM Q8H per EXTENDED INFUSION IV SCH ×3 (06:25→23:19)
[2021-01-14] MEDS ORDERED: Magnesium Sulfate 2 gm BAG 2 GM/50 ML BAG IVPB ONE (07:14)
[2021-01-14] MEDS ORDERED: NS 0.9% 100 ml BAG 100 ML ONE (07:50)
[2021-01-14] MEDS: Amiodarone 400 mg TAB PO SCH ×2 (08:04→20:40)
[2021-01-14] MEDS: Pantoprazole VIAL 40 MG VIAL IV SCH (08:04)
[2021-01-14] MEDS: Enoxaparin 40 MG/0.4 ML SYR SUBCUT SCH (10:01)
[2021-01-14] MEDS: levETIRAcetam 500 MG IVPREMIX 500 MG/100 ML BAG IV SCH ×2 (10:01→22:47)
[2021-01-14] MEDS ORDERED: Furosemide 40 mg/4 ml IV VIAL IV ONE (10:20)
[2021-01-14] MEDS ORDERED: Saline FLUSH-CENTRAL 10 ML SYRINGE CENT\\PICC SCH (13:00)
[2021-01-14] MEDS ORDERED: TPN 24 HR with Dextrose 50% Water 500 ML, Amino Acid Infusion 10% 850 ML, Sterile Water... IV SCH (17:00)
[2021-01-15] MEDS ORDERED: Lorazepam PYXIS KEY ONE ×2 (01:47→12:04)
[2021-01-15] MEDS: LORazepam 2 mg VIAL 1 ml IV PUSH PRN ×3 (01:51→17:47)
[2021-01-15 05:53] LABS: Albumin 2.6 g/dL (3.2-5.2); Albumin/Globulin Ratio 0.8 (1-3); BUN/Creatinine Ratio 18.9 (8-20); Calcium 8.1 mg/dL (8.6-10.3); EGFR African American 126.2 (>60); EGFR Non-African American 104.3 (>60); Globulin 3.2 g/dL (2-4); Magnesium 1.9 mg/dL (1.9-2.7); Potassium 3.7 mmol/L (3.5-5.0); Total Bilirubin 0.2 mg/dL (0.2-1.0); Total Protein 5.8 g/dL (6.4-8.9)
[2021-01-15] MEDS: Pantoprazole VIAL 40 MG VIAL IV SCH (07:35)
[2021-01-15] MEDS: ZOSYN 3.375 GM Q8H per EXTENDED INFUSION IV SCH ×3 (07:35→23:53)
[2021-01-15] MEDS: Amiodarone 400 mg TAB PO SCH ×2 (07:36→21:35)
[2021-01-15] MEDS: Nystatin TOP POWDER 15 GM BTL TOPICAL SCH ×2 (07:37→22:00)
[2021-01-15] MEDS ORDERED: Potassium Phosphate IV 15 MMOLE in NS 0.9% 250 ml 250 ML IVPB ONE (08:00)
[2021-01-15] MEDS ORDERED: Magnesium Sulfate 2 gm BAG 2 GM/50 ML BAG IVPB ONE (08:30)
[2021-01-15] MEDS: Enoxaparin 40 MG/0.4 ML SYR SUBCUT SCH (12:18)
[2021-01-15] MEDS: levETIRAcetam 500 MG IVPREMIX 500 MG/100 ML BAG IV SCH ×2 (12:19→21:34)
[2021-01-15] MEDS ORDERED: TPN 24 HR with Dextrose 50% Water 500 ML, Amino Acid Infusion 10% 850 ML, Sterile Water... CENTR SCH (17:00)
[2021-01-15] MEDS: Albuterol 2.5mg/3 ml (0.083%) NEB.SOLN INH PRN (20:37)
[2021-01-16] MEDS: LORazepam 2 mg VIAL 1 ml IV PUSH PRN ×3 (00:02→16:48)
[2021-01-16] MEDS: ZOSYN 3.375 GM Q8H per EXTENDED INFUSION IV SCH ×3 (06:59→23:34)
[2021-01-16] MEDS ORDERED: Lorazepam PYXIS KEY PRN (08:39)
[2021-01-16] MEDS: Pantoprazole VIAL 40 MG VIAL IV SCH (09:19)
[2021-01-16] MEDS: Ondansetron 4 mg VIAL 2 MG/ML 2 ml VIAL IV PRN ×2 (09:19→16:43)
[2021-01-16] MEDS: Amiodarone 400 mg TAB PO SCH ×2 (09:23→20:31)
[2021-01-16] MEDS: Nystatin TOP POWDER 15 GM BTL TOPICAL SCH ×2 (09:25→20:32)
[2021-01-16 10:04] LABS: Albumin 2.7 g/dL (3.2-5.2); Albumin/Globulin Ratio 0.9 (1-3); BUN/Creatinine Ratio 18.2 (8-20); EGFR African American 120.5 (>60); EGFR Non-African American 99.6 (>60); Globulin 2.9 g/dL (2-4); Potassium 4.3 mmol/L (3.5-5.0); Total Protein 5.6 g/dL (6.4-8.9)
[2021-01-16 10:05] LABS: Total Bilirubin 0.3 mg/dL (0.2-1.0)
[2021-01-16] MEDS: levETIRAcetam 500 MG IVPREMIX 500 MG/100 ML BAG IV SCH ×2 (10:14→20:31)
[2021-01-16 10:36] LABS: Phosphorus 2.8 mg/dL (2.5-5.0)
[2021-01-16] MEDS ORDERED: TPN CENTRAL STANDARD BASE B CENT\\PICC SCH (17:00)
[2021-01-16] MEDS: Albuterol 2.5mg/3 ml (0.083%) NEB.SOLN INH PRN (17:42)
[2021-01-17] MEDS: LORazepam 2 mg VIAL 1 ml IV PUSH PRN ×4 (00:28→22:44)
[2021-01-17] MEDS: Ondansetron 4 mg VIAL 2 MG/ML 2 ml VIAL IV PRN ×3 (04:47→18:00)
[2021-01-17 04:52] LABS: BUN/Creatinine Ratio 24.3 (8-20); Calcium 8.1 mg/dL (8.6-10.3); EGFR African American 126.2 (>60); EGFR Non-African American 104.3 (>60); Magnesium 1.9 mg/dL (1.9-2.7); Potassium 4.4 mmol/L (3.5-5.0)
[2021-01-17] MEDS: ZOSYN 3.375 GM Q8H per EXTENDED INFUSION IV SCH ×2 (05:46→15:04)
[2021-01-17] MEDS: Pantoprazole VIAL 40 MG VIAL IV SCH (10:24)
[2021-01-17] MEDS: Amiodarone 400 mg TAB PO SCH ×2 (10:24→22:47)
[2021-01-17] MEDS: levETIRAcetam 500 MG IVPREMIX 500 MG/100 ML BAG IV SCH ×2 (10:25→22:40)
[2021-01-17] MEDS: Nystatin TOP POWDER 15 GM BTL TOPICAL SCH ×2 (10:39→22:51)
[2021-01-17] MEDS ORDERED: Iohexol 300 (CONTRAST) 10 ML SDV IV ONE (14:58)
[2021-01-17] MEDS ORDERED: TPN CENTRAL STANDARD BASE B CENT\\PICC SCH (17:00)
[2021-01-17] MEDS ORDERED: Furosemide 20 mg/2 ml IV VIAL IV ONE (18:12)
[2021-01-18] MEDS: Albuterol 2.5mg/3 ml (0.083%) NEB.SOLN INH PRN (04:42)
[2021-01-18] MEDS: LORazepam 2 mg VIAL 1 ml IV PUSH PRN (04:51)
[2021-01-18 05:17] LABS: ABS Basophils 0.1 10^3/ul (0-0.2); ABS Eosinophils 0.4 10^3/ul (0-0.6); ABS Lymphocytes 0.8 10^3/ul (1.0-4.8); ABS Neutrophils 12.2 10^3/ul (1.5-7.7); Eosinophil % 2.6 %; Hematocrit 26 % (42-52); Hemoglobin 8.6 g/dL (14.0-18.0); Lymphocyte % 5.8 %; Mean Corpuscular HGB Conc 33 g/dL (31-36); Mean Corpuscular Hemoglobin 31 pg (27-31); Mean Corpuscular Volume 94 fL (80-94); Mean Platelet Volume 6.1 fL (7.4-10.4); Platelet Count 454 10^3/uL (150-450); Red Blood Count 2.77 10^6 /uL (4.18-5.48); Red Cell Distribution Width 14 % (10-15); White Blood Count 14.4 10^3/uL (3.5-10.8)
[2021-01-18 05:51] LABS: Calcium 8.1 mg/dL (8.6-10.3); Potassium 4.5 mmol/L (3.5-5.0)
[2021-01-18 05:57] LABS: BUN/Creatinine Ratio 19.2 (8-20); EGFR African American 118.7 (>60); EGFR Non-African American 98.1 (>60)
[2021-01-18] MEDS: Amiodarone 400 mg TAB PO SCH ×2 (08:44→23:01)
[2021-01-18] MEDS: Pantoprazole VIAL 40 MG VIAL IV SCH (08:44)
[2021-01-18] MEDS ORDERED: Lorazepam PYXIS KEY PRN (08:56)
[2021-01-18] MEDS ORDERED: ceFAZolin VIAL 2 GM in NS 0.9% 100 ml BAG 100 ML IVPB SCH (09:00)
[2021-01-18] MEDS ORDERED: Furosemide 20 mg/2 ml IV VIAL IV ONE (09:00)
[2021-01-18] MEDS ORDERED: Piperacillin/Tazobac ADVAN 3.375 GM in NS 0.9% 100 ml BAG 100 ML IV ONE (09:55)
[2021-01-18] MEDS ORDERED: Zosyn per Pharmacy NOTE FOLLOW UP SCH (10:00)
[2021-01-18] MEDS ORDERED: ceFAZolin 1 GM X ONE DOSE (AddVan) IVPB (10:00)
[2021-01-18] MEDS: levETIRAcetam 500 MG IVPREMIX 500 MG/100 ML BAG IV SCH ×2 (10:41→22:42)
[2021-01-18] MEDS: Nystatin TOP POWDER 15 GM BTL TOPICAL SCH ×2 (10:41→23:03)
[2021-01-18 10:46] LABS: C Reactive Protein 104.48 mg/L (<8.01)
[2021-01-18] MEDS ORDERED: Dexamethasone IV 4 MG/ML VIAL 1 ml VIAL IV SLOW PU SCH (14:00)
[2021-01-18] MEDS: Dexamethasone IV 4 MG/ML VIAL 1 ml VIAL IV SLOW PU SCH ×2 (14:47→22:35)
[2021-01-18] MEDS: LORazepam 2 mg VIAL 1 ml IV PUSH SCH ×2 (14:47→23:09)
[2021-01-18] MEDS: ZOSYN 3.375 GM Q8H per EXTENDED INFUSION IV SCH ×2 (16:01→23:13)
[2021-01-18] MEDS ORDERED: SODIUM CHLORIDE CENT\\PICC SCH (17:00)
[2021-01-18] MEDS ORDERED: POTASSIUM CHLORIDE TPN CENT\\PICC SCH (17:00)
[2021-01-18] MEDS ORDERED: TPN CENT\\PICC SCH (17:00)
[2021-01-18] MEDS ORDERED: [UNRECOGNIZED DRUG - OTHER] CENT\\PICC SCH (17:00)
[2021-01-19] MEDS: Albuterol 2.5mg/3 ml (0.083%) NEB.SOLN INH PRN (02:40)
[2021-01-19] MEDS ORDERED: Furosemide 40 mg/4 ml IV VIAL IV SLOW PU ONE (03:58)
[2021-01-19] MEDS: Dexamethasone IV 4 MG/ML VIAL 1 ml VIAL IV SLOW PU SCH ×3 (05:03→22:14)
[2021-01-19] MEDS: LORazepam 2 mg VIAL 1 ml IV PUSH SCH ×3 (05:03→22:12)
[2021-01-19] MEDS: ZOSYN 3.375 GM Q8H per EXTENDED INFUSION IV SCH (07:28)
[2021-01-19 07:47] LABS: ABS Basophils 0.1 10^3/ul (0-0.2); ABS Lymphocytes 0.5 10^3/ul (1.0-4.8); ABS Monocytes 0.9 10^3/ul (0-0.8); ABS Neutrophils 14.5 10^3/ul (1.5-7.7); Hematocrit 25 % (42-52); Hemoglobin 8.3 g/dL (14.0-18.0); Mean Corpuscular HGB Conc 33 g/dL (31-36); Mean Corpuscular Hemoglobin 31 pg (27-31); Mean Corpuscular Volume 94 fL (80-94); Mean Platelet Volume 6.3 fL (7.4-10.4); Platelet Count 439 10^3/uL (150-450); Red Blood Count 2.68 10^6 /uL (4.18-5.48); Red Cell Distribution Width 15 % (10-15); White Blood Count 15.9 10^3/uL (3.5-10.8)
[2021-01-19 08:15] LABS: Magnesium 1.7 mg/dL (1.9-2.7); Phosphorus 2.1 mg/dL (2.5-5.0)
[2021-01-19] MEDS: Pantoprazole VIAL 40 MG VIAL IV SCH (09:44)
[2021-01-19] MEDS: Amiodarone 400 mg TAB PO SCH (09:46)
[2021-01-19] MEDS: Nystatin TOP POWDER 15 GM BTL TOPICAL SCH ×2 (09:47→23:03)
[2021-01-19] MEDS: levETIRAcetam 500 MG IVPREMIX 500 MG/100 ML BAG IV SCH (09:51)
[2021-01-19 09:55] LABS: Albumin 2.8 g/dL (3.2-5.2); Albumin/Globulin Ratio 0.8 (1-3); BUN/Creatinine Ratio 22.4 (8-20); Calcium 8.5 mg/dL (8.6-10.3); EGFR African American 107.5 (>60); EGFR Non-African American 88.9 (>60); Globulin 3.6 g/dL (2-4); Potassium 4.1 mmol/L (3.5-5.0); Total Bilirubin 0.4 mg/dL (0.2-1.0); Total Protein 6.4 g/dL (6.4-8.9)
[2021-01-19] MEDS: Polyethylene Glycol 3350 17 GM PACKET PO SCH ×2 (09:56→11:07)
[2021-01-19] MEDS: Senna TAB 8.6 mg TAB PO SCH ×2 (09:56→22:14)
[2021-01-19] MEDS ORDERED: DOXORUBICIN IVPB SCH ×2 (13:00→14:30)
[2021-01-19] MEDS ORDERED: NS 0.9% IVPB SCH ×3 (13:00→14:30)
[2021-01-19] MEDS ORDERED: RITUXIMAB IVPB ONE ×2 (13:00→14:30)
[2021-01-19] MEDS ORDERED: VINCRISTINE IVPB SCH ×2 (13:00→14:30)
[2021-01-19] MEDS ORDERED: ETOPOSIDE IVPB SCH ×2 (13:00→14:30)
[2021-01-19] MEDS ORDERED: NS 0.9% IVPB ONE ×3 (13:00→14:30)
[2021-01-19] MEDS ORDERED: diPHENhydraMINE IV 50 MG/ML 1 ml VIAL (BENADRYL) SLOW PUSH ONE (14:00)
[2021-01-19] MEDS: methylPREDNISolone 125 mg 2 ML VIAL IV SCH (14:03)
[2021-01-19] MEDS ORDERED: PALONOSETRON IVPB ONE (14:30)
[2021-01-19] MEDS ORDERED: APREPITANT 130 MG in Premix IV 0 ML IVPB ONE (14:30)
[2021-01-19] MEDS ORDERED: Metoclopramide 5 MG/ML VIAL (10 mg) IV PRN (14:40)
[2021-01-19] MEDS ORDERED: Lorazepam PYXIS KEY PRN (14:40)
[2021-01-19] MEDS ORDERED: Famotidine IV 10 MG/ML 2 ml VIAL (20 mg) IV SLOW PU PRN (14:44)
[2021-01-19] MEDS ORDERED: diPHENhydraMINE IV 50 MG/ML 1 ml VIAL (BENADRYL) SLOW PUSH PRN (14:45)
[2021-01-19] MEDS ORDERED: methylPREDNISolone 125 mg 2 ML VIAL IV PRN (14:46)
[2021-01-19] MEDS ORDERED: Meperidine 50 mg/ml SYRINGE 1 ml IV PRN (14:46)
[2021-01-19] MEDS ORDERED: Magnesium Sulfate IV 3 GM in NS 0.9% 100 ml BAG 100 ML IVPB ONE (15:24)
[2021-01-19] MEDS ORDERED: Lorazepam PYXIS KEY ONE (22:05)
[2021-01-20] MEDS: levETIRAcetam 500 MG IVPREMIX 500 MG/100 ML BAG IV SCH ×3 (00:20→22:30)
[2021-01-20] MEDS: Albuterol 2.5mg/3 ml (0.083%) NEB.SOLN INH PRN (04:46)
[2021-01-20] MEDS: LORazepam 2 mg VIAL 1 ml IV PUSH PRN (05:08)
[2021-01-20] MEDS: Dexamethasone IV 4 MG/ML VIAL 1 ml VIAL IV SLOW PU SCH (05:08)
[2021-01-20] MEDS ORDERED: Furosemide 40 mg/4 ml IV VIAL IV SLOW PU ONE (05:10)
[2021-01-20] MEDS: LORazepam 2 mg VIAL 1 ml IV PUSH SCH ×3 (05:16→22:30)
[2021-01-20 05:43] LABS: ABS Lymphocytes 0.3 10^3/ul (1.0-4.8); ABS Monocytes 0.7 10^3/ul (0-0.8); ABS Neutrophils 11.7 10^3/ul (1.5-7.7); Eosinophil % 0.1 %; Hematocrit 24 % (42-52); Hemoglobin 7.7 g/dL (14.0-18.0); Lymphocyte % 2.6 %; Mean Corpuscular HGB Conc 33 g/dL (31-36); Mean Corpuscular Hemoglobin 31 pg (27-31); Mean Corpuscular Volume 95 fL (80-94); Mean Platelet Volume 6.7 fL (7.4-10.4); Platelet Count 375 10^3/uL (150-450); Red Blood Count 2.48 10^6 /uL (4.18-5.48); Red Cell Distribution Width 15 % (10-15); White Blood Count 12.7 10^3/uL (3.5-10.8)
[2021-01-20 06:01] LABS: ALT 176 U/L (7-52); AST 94 U/L (13-39); Albumin 2.7 g/dL (3.2-5.2); Albumin/Globulin Ratio 0.8 (1-3); Alkaline Phosphatase 313 U/L (34-104); Anion Gap 6 mmol/L (2-11); Blood Urea Nitrogen 31 mg/dL (6-24); CO2 Carbon Dioxide 25 mmol/L (22-32); Calcium 8.2 mg/dL (8.6-10.3); Chloride 101 mmol/L (101-111); Cholesterol 100 mg/dL; EGFR African American 106.1 (>60); EGFR Non-African American 87.7 (>60); Globulin 3.5 g/dL (2-4); Glucose 152 mg/dL (70-100); INR 2.43 (0.82-1.09); Magnesium 2.3 mg/dL (1.9-2.7); Phosphorus 3.5 mg/dL (2.5-5.0); Potassium 4.6 mmol/L (3.5-5.0); Sodium 132 mmol/L (135-145); Total Protein 6.2 g/dL (6.4-8.9); Triglycerides 90 mg/dL; Uric Acid 2.4 mg/dL (4.4-7.6)
[2021-01-20 06:04] LABS: Prealbumin 10 mg/dL (18-38)
[2021-01-20] MEDS: Polyethylene Glycol 3350 17 GM PACKET PO SCH (09:33)
[2021-01-20] MEDS: Senna TAB 8.6 mg TAB PO SCH ×2 (09:33→20:05)
[2021-01-20] MEDS: Nystatin TOP POWDER 15 GM BTL TOPICAL SCH ×3 (09:34→20:05)
[2021-01-20] MEDS: Pantoprazole VIAL 40 MG VIAL IV SCH (09:34)
[2021-01-20 11:40] LABS: Platelet Count 397 10^3/ul (150-450)
[2021-01-20 12:05] LABS: Activated Partial Thrombo Time 24.7 seconds (26.0-38.0); Fibrinogen 466.5 mg/dL (110.8-404.3)
[2021-01-20 12:13] LABS: Schistocytes ABSENT
[2021-01-20] MEDS: methylPREDNISolone 125 mg 2 ML VIAL IV SCH (13:51)
[2021-01-20 14:24] LABS: Corrected Retic Count 0.9 % (0.5-1.5); Hematocrit for Retic CNT 24 % (42-52); Immature Retic Fraction 0.49; RBC Retic Count 2.48 10^6/uL (4.18-5.48)
[2021-01-20 14:35] LABS: % Iron Saturation 11 % (15-55); Iron 21 ug/dL (50-212); LDH 256 U/L (140-271); Total Iron Binding Capacity 193 mcg/dL (250-450); Transferrin 138 mg/dL (203-362); Unsaturated Iron Binding < 178 ug/dL
[2021-01-20] MEDS: NS 0.9% IVPB SCH (15:43)
[2021-01-20] MEDS: DOXORUBICIN IVPB SCH (15:43)
[2021-01-20] MEDS: VINCRISTINE IVPB SCH (15:43)
[2021-01-20] MEDS: ETOPOSIDE IVPB SCH (15:43)
[2021-01-20] MEDS: NS 0.9% 1000 ml BAG 1,000 ML IV SCH (17:19)
[2021-01-20] MEDS: Ondansetron 4 mg VIAL 2 MG/ML 2 ml VIAL IV PRN (20:05)
[2021-01-21] MEDS: LORazepam 2 mg VIAL 1 ml IV PUSH PRN (00:21)
[2021-01-21] MEDS ORDERED: Furosemide 40 mg/4 ml IV VIAL IV SLOW PU ONE (02:36)
[2021-01-21] MEDS: NS 0.9% 1000 ml BAG 1,000 ML IV SCH ×2 (02:44→13:59)
[2021-01-21] MEDS: LORazepam 2 mg VIAL 1 ml IV PUSH SCH ×2 (06:02→19:08)
[2021-01-21 06:30] LABS: ABS Lymphocytes 0.2 10^3/ul (1.0-4.8); ABS Monocytes 0.7 10^3/ul (0-0.8); ABS Neutrophils 10.5 10^3/ul (1.5-7.7); Hematocrit 23 % (42-52); Hemoglobin 7.7 g/dL (14.0-18.0); Lymphocyte % 1.9 %; Mean Corpuscular HGB Conc 33 g/dL (31-36); Mean Corpuscular Hemoglobin 31 pg (27-31); Mean Corpuscular Volume 93 fL (80-94); Mean Platelet Volume 6.7 fL (7.4-10.4); Nucleated Red Blood Cells % 0.1; Platelet Count 345 10^3/uL (150-450); Red Cell Distribution Width 15 % (10-15); White Blood Count 11.4 10^3/uL (3.5-10.8)
[2021-01-21 06:32] LABS: INR 1.98 (0.82-1.09)
[2021-01-21 07:03] LABS: Albumin 2.7 g/dL (3.2-5.2); Calcium 7.9 mg/dL (8.6-10.3); Potassium 4.4 mmol/L (3.5-5.0); Total Bilirubin 0.4 mg/dL (0.2-1.0)
[2021-01-21 07:09] LABS: Albumin/Globulin Ratio 0.8 (1-3); EGFR African American 99.4 (>60); EGFR Non-African American 82.1 (>60); Globulin 3.2 g/dL (2-4); Total Protein 5.9 g/dL (6.4-8.9)
[2021-01-21] MEDS ORDERED: Succinylcholine 200 mg VIAL 20 mg/ml 10 ml VIAL (200 mg) ONE (08:33)
[2021-01-21] MEDS ORDERED: Rocuronium 50 mg VIAL 10 mg/ml 5 ml VIAL (50 mg) ONE (08:33)
[2021-01-21] MEDS ORDERED: LORazepam 2 mg VIAL 1 ml ONE (09:35)
[2021-01-21] MEDS: Nystatin TOP POWDER 15 GM BTL TOPICAL SCH ×2 (10:42→21:29)
[2021-01-21] MEDS: Senna TAB 8.6 mg TAB PO SCH ×2 (10:43→21:30)
[2021-01-21] MEDS: Polyethylene Glycol 3350 17 GM PACKET PO SCH (10:43)
[2021-01-21] MEDS: levETIRAcetam 500 MG IVPREMIX 500 MG/100 ML BAG IV SCH ×2 (11:02→21:29)
[2021-01-21] MEDS: Pantoprazole VIAL 40 MG VIAL IV SCH (11:02)
[2021-01-21] MEDS ORDERED: Etomidate 40 mg/20 ml (2 MG/ML) 20 ml VIAL (40 mg) ONE (11:53)
[2021-01-21] MEDS ORDERED: fentaNYL 250 mcg/5 ml 50 MCG/ML 5 ml VIAL (250 MCG) ONE (11:53)
[2021-01-21] MEDS ORDERED: Propofol 10 mg/ml 100 ML BTL 100 ML ONE (12:02)
[2021-01-21] MEDS: methylPREDNISolone 125 mg 2 ML VIAL IV SCH (13:59)
[2021-01-21] MEDS: NS 0.9% IVPB SCH (14:51)
[2021-01-21] MEDS: ETOPOSIDE IVPB SCH (14:51)
[2021-01-21] MEDS: DOXORUBICIN IVPB SCH (14:51)
[2021-01-21] MEDS: VINCRISTINE IVPB SCH (14:51)
[2021-01-21] MEDS: Propofol 10 mg/ml 100 ML BTL 100 ML IV SCH ×3 (16:17→23:42)
[2021-01-21] MEDS: Docusate LIQ 100 MG/10 ML UDC PO SCH (21:29)
[2021-01-21] MEDS: Chlorhexidine MOUTHWASH 0.12% 15 ML UDC TOPICAL SCH ×2 (21:29→23:44)
[2021-01-22 02:47] LABS: ABS Lymphocytes 0.2 10^3/ul (1.0-4.8); ABS Monocytes 0.1 10^3/ul (0-0.8); Hematocrit 21 % (42-52); Hemoglobin 6.9 g/dL (14.0-18.0); Lymphocyte % 2.5 %; Mean Corpuscular HGB Conc 33 g/dL (31-36); Mean Corpuscular Hemoglobin 31 pg (27-31); Mean Corpuscular Volume 94 fL (80-94); Platelet Count 216 10^3/uL (150-450); Red Blood Count 2.22 10^6 /uL (4.18-5.48); Red Cell Distribution Width 15 % (10-15); White Blood Count 7.3 10^3/uL (3.5-10.8)
[2021-01-22 02:52] LABS: INR 2.01 (0.82-1.09)
[2021-01-22] MEDS: Chlorhexidine MOUTHWASH 0.12% 15 ML UDC TOPICAL SCH ×6 (02:54→22:34)
[2021-01-22 03:04] LABS: Albumin 2.5 g/dL (3.2-5.2); Albumin/Globulin Ratio 0.7 (1-3); EGFR African American 71.5 (>60); EGFR Non-African American 59.1 (>60); Globulin 3.4 g/dL (2-4); Potassium 4.8 mmol/L (3.5-5.0); Total Bilirubin 0.5 mg/dL (0.2-1.0); Total Protein 5.9 g/dL (6.4-8.9)
[2021-01-22] MEDS: Propofol 10 mg/ml 100 ML BTL 100 ML IV SCH ×2 (03:48→08:45)
[2021-01-22] MEDS: Senna TAB 8.6 mg TAB PO SCH ×2 (08:41→21:13)
[2021-01-22] MEDS: Docusate LIQ 100 MG/10 ML UDC PO SCH ×2 (08:41→21:12)
[2021-01-22] MEDS: Polyethylene Glycol 3350 17 GM PACKET PO SCH (08:41)
[2021-01-22] MEDS: Pantoprazole VIAL 40 MG VIAL IV SCH (09:26)
[2021-01-22] MEDS: Nystatin TOP POWDER 15 GM BTL TOPICAL SCH ×2 (09:26→22:34)
[2021-01-22] MEDS: levETIRAcetam 500 MG IVPREMIX 500 MG/100 ML BAG IV SCH ×2 (09:26→22:35)
[2021-01-22] MEDS: NS 0.9% 1000 ml BAG 1,000 ML IV SCH (09:46)
[2021-01-22 11:33] LABS: Uric Acid 4.1 mg/dL (4.4-7.6)
[2021-01-22] MEDS: ETOPOSIDE IVPB SCH (13:23)
[2021-01-22] MEDS: NS 0.9% IVPB SCH (13:23)
[2021-01-22] MEDS: VINCRISTINE IVPB SCH (13:23)
[2021-01-22] MEDS: DOXORUBICIN IVPB SCH (13:23)
[2021-01-22] MEDS: methylPREDNISolone 125 mg 2 ML VIAL IV SCH (13:55)
[2021-01-22] MEDS ORDERED: PALONOSETRON IVPB ONE (14:00)
[2021-01-22] MEDS ORDERED: NS 0.9% IVPB ONE (14:00)
[2021-01-22] MEDS ORDERED: Propofol 10 mg/ml 100 ML BTL 100 ML IV SCH (15:20)
[2021-01-23] MEDS: Chlorhexidine MOUTHWASH 0.12% 15 ML UDC TOPICAL SCH ×3 (02:06→09:06)
[2021-01-23 05:18] LABS: ABS Lymphocytes 0.2 10^3/ul (1.0-4.8); ABS Monocytes 0.1 10^3/ul (0-0.8); Hematocrit 23 % (42-52); Hemoglobin 7.7 g/dL (14.0-18.0); Lymphocyte % 1.6 %; Mean Corpuscular HGB Conc 33 g/dL (31-36); Mean Corpuscular Hemoglobin 31 pg (27-31); Mean Corpuscular Volume 94 fL (80-94); Platelet Count 182 10^3/uL (150-450); Red Blood Count 2.48 10^6 /uL (4.18-5.48); Red Cell Distribution Width 15 % (10-15); White Blood Count 11.2 10^3/uL (3.5-10.8)
[2021-01-23 05:25] LABS: INR 1.85 (0.82-1.09)
[2021-01-23 05:36] LABS: Albumin 2.7 g/dL (3.2-5.2); Albumin/Globulin Ratio 0.8 (1-3); Calcium 8.1 mg/dL (8.6-10.3); EGFR African American 75.1 (>60); EGFR Non-African American 62.1 (>60); Globulin 3.5 g/dL (2-4); Total Bilirubin 0.9 mg/dL (0.2-1.0); Total Protein 6.2 g/dL (6.4-8.9)
[2021-01-23] MEDS ORDERED: Morphine 2 MG/ML SYRINGE IV PRN (06:32)
[2021-01-23] MEDS: Pantoprazole VIAL 40 MG VIAL IV SCH (09:06)
[2021-01-23] MEDS: Nystatin TOP POWDER 15 GM BTL TOPICAL SCH (09:07)
[2021-01-23] MEDS: Senna TAB 8.6 mg TAB PO SCH (09:39)
[2021-01-23] MEDS: Polyethylene Glycol 3350 17 GM PACKET PO SCH (09:39)
[2021-01-23] MEDS: Docusate LIQ 100 MG/10 ML UDC PO SCH (09:39)
[2021-01-23] MEDS: levETIRAcetam 500 MG IVPREMIX 500 MG/100 ML BAG IV SCH (10:39)
[2021-01-23] MEDS ORDERED: Lorazepam PYXIS KEY PRN (12:28)
[2021-01-23] MEDS ORDERED: Morphine 10 MG/ML VIAL (1 ml) IV ONE ×2 (12:29→13:46)
[2021-01-23] MEDS ORDERED: CYCLOPHOSPHAMIDE IVPB ONE (12:30)
[2021-01-23] MEDS ORDERED: NS 0.9% IVPB ONE (12:30)
[2021-01-23] MEDS ORDERED: Morphine PCA 5 MG/ML Titrate per Protocol PCA SCH (13:00)
[2021-01-23] MEDS: LORazepam 2 mg VIAL 1 ml IV PUSH PRN ×2 (13:26→13:55)
[2021-01-23] MEDS ORDERED: Morphine 10 MG/ML VIAL (1 ml) ONE (13:45)
[2021-01-23 13:58] VITALS: BP 148/78
[2021-02-02] MEDS ORDERED: Propofol 10 mg/ml 100 ML BTL 100 ML ONE (04:37)
== END 2021-01-23 13:55 | disposition expired | DRG 680 ==
LOC: AA 06:11 → ICU 15:09 → SSU 01-03 14:11 → ICU 01-10 02:55 → SSU 01-11 12:10 → ICU 01-11 18:08 → MEDTELE 01-15 15:53 → ICU 01-19 05:08
PROVIDERS: ADMIT Neurological Surgery; ATTEND Internal Medicine Critical Care Medicine